=== PATIENT | female | born 1990 | race Caucasian/White ===

== ENCOUNTER 2023-03-19 21:56 | Inpatient (IN) ==
[2023-03-19 22:47] LABS: Appearance Urine Cloudy (Clear); Bacteria Urine Automated 3+ (Negative); Bilirubin Urine Negative (Negative); Blood Urine Negative (Negative); Color Urine Dark Yellow; Epithelial Cell Urine Auto >30 /lpf (0-5); Glucose Urine UA Negative (Negative); Ketones Urine Trace (Negative); Leukocyte Esterase Urine 2+ (Negative); Nitrite Urine Negative (Negative); Protein Urine Trace (Negative); RBC Urine Automated 0-4 /hpf (0-4); Specific Gravity Urine 1.031 (1.000-1.030); Urobilinogen Urine Negative (Negative); WBC Urine Automated >30 /hpf (0-5)
[2023-03-19 22:49] LABS: Pregnancy Test, Urine Negative (Negative)
[2023-03-19 22:52] LABS: Basophils # (auto) 0.05 K/uL (0-0.2); Basophils % (auto) 0.8 %; Eosinophils # (auto) 0.15 K/uL (0-0.50); Eosinophils % (auto) 2.4 %; Hematocrit (blood only) 36.8 % (37.0-47.0); Hemoglobin 12.4 g/dl (12.0-16.0); Immature Granulocytes # (auto) 0.01 K/uL (0.01-0.20); Immature Granulocytes % (auto) 0.2 %; Lymphocytes # (auto) 3.03 K/uL (1.2-3.4); Lymphocytes % (auto) 49.3 %; Mean Corpuscular Hemoglobin 28.3 pg (25.0-34.0); Mean Corpuscular Hgb Conc 33.7 g/dL (32.0-36.0); Monocytes # (auto) 0.39 K/uL (0.11-0.59); Monocytes % (auto) 6.3 %; Neutrophils # (auto) 2.52 K/uL (1.40-6.50); Platelet Count 288 K/uL (130-400); RDW Coefficient of Variation 13.8 % (11.5-14.5); RDW Standard Deviation 42.8 fL (36.4-46.3); Red Blood Count 4.38 M/uL (4.20-5.40); White Blood Count 6.15 K/ul (4.8-10.8)
[2023-03-19 23:01] LABS: Acetaminophen < 3 ug/ml (10-30); Salicylate < 3.0 mg/dl (3.0-30)
[2023-03-19 23:06] LABS: Albumin Globulin Ratio 1.3 (0.9-2); Albumin Level 4.3 gm/dl (3.4-5.0); BUN Creatinine Ratio 12.9 (10-20); Bilirubin,Total 0.4 mg/dl (0.2-1.0); Calcium 9.1 mg/dl (8.6-10.3); Creatinine Clr Calc Pharmacy 82.7 ml/min; Est GFR (African American) 132.9 ml/min; Est GFR (Non-African American) 114.6 ml/min; Globulin 3.3 gm/dl (2.5-4.0); Potassium 3.4 mmol/L (3.5-5.1); Total Protein 7.6 gm/dl (6.0-8.3)
[2023-03-19 23:09] LABS: Amphetamines+Metham, Urine Pos (Neg); Barbiturates, Urine Neg (Neg); Benzodiazepine, Urine Neg (Neg); Cocaine, Urine Neg (Neg); MDMA (Ecstacy), Urine Pos (Neg); Methadone, Urine Neg (Neg); Opiate, Urine Neg (Neg); Phencyclidine, Urine Neg (Neg)
[2023-03-20] MEDS ORDERED: DOXYCYCLINE HYCLATE 100 MG CAP PO STA (00:26)
--- NOTE | 2023-03-20 00:26 | Emergency Department Note ---
Impression & Plan Acute paranoia, Psychosis ED Provider Note INFORMANT: Patient ED PROVIDER(S): Zi Kwon DO CHIEF COMPLAINT: PLAN: Disposition: Psychiatric admission Outpatient prescription management: [none] Discussion with: systems program managertrust manager DECISION MAKING: This is a 33-year-old female who presents to the ED with a chief complaint of mental health issues. The patient was brought in by police after family contacted them. The patient does have a history of drug abuse. Reportedly uses methamphetamine. She also has a history of schizophrenia. The patient states that she has a bug in her nose for which the old friend who is now the girlfriend of her "baby daddy". She states that she is able to track her moves and follow her. She also reported there was some wires and that she recently was given. She states that these devices are able to make her skin crawl and other issues. The patient is in no distress. She does show me a rash on the left flank area. This has the appearance of an erythema migrans chronicum. Concern for possible tick bite although she denies having a tick on her. At a minimum there is some mild cellulitis there. She will be started on doxycycline for this. The patient otherwise does not require any medical admission for this. CBC showed no leukocytosis or anemia. Chemistry panel showed no concerning electrolyte abnormality. Urine test was negative. Salicylates and Tylenol were negative. Alcohol was negative. Urine appears contaminated but no obvious infection. She has no urinary symptoms. The patient has been 302. This was signed by me. A prescription for doxycycline has been provided for possible erythema chronicum micrograms versus a cellulitis in the left flank. The patient is awaiting placement. Will be signed out to Dr. Motta. Triage Nursing notes reviewed. Vital Signs: reviewed Prior /Outside records reviewed: [none] Differential diagnosis: Differential includes toxic ingestions, self-mutilation, suicidal ideation, suicide attempt, depression. Diagnostics, as interpreted by me: 12 lead ECG: [none] Cardiac Monitoring ordered: [none] Medical decision rules: [none] Imaging studies: [none] Procedures: none. Critical care: none. HPI: See MDM above. PAST MEDICAL HISTORY: See Below PAST SURGICAL HISTORY: See Below SOCIAL HISTORY: See Below HOME MEDICATIONS:See Below ALLERGIES: See Below VITALS: See Below PHYSICAL EXAMINATION: See MDM for positive findings otherwise unremarkable. CONSTITUTIONAL/VITAL SIGNS: Reviewed GENERAL:done as appropriate INTEGUMENTARY: done as appropriate HEAD: done as appropriate EYES: done as appropriate RESPIRATORY: done as appropriate CARDIOVASCULAR:done as appropriate GI/ABDOMEN:done as appropriate EXTREMITIES: done as appropriate NEUROLOGICAL: done as appropriate PSYCHIATRIC:done as appropriate MUSCULOSKELETAL:done as appropriate TRIAGE NURSING DOCUMENTATION REVIEWED. Past Med/Surg History Medical History Abscess of left upper extremity Cellulitis of arm, left Raynaud disease Traumatic hematoma of left forearm Traumatic hematoma of left forearm Surgical History No significant past surgical history Family History Other No significant family history Social History Smoking Status: Current every day smoker Tobacco Type: Cigarettes Preferred Language: Wolof marital status: Single current occupational status: unemployed Feels Safe at Home: No Gender Identity: Female Allergies Allergies Allergy/AdvReac Type Severity Reaction Status Date / Time No Known Allergies Allergy Verified 05/04/19 18:09 Home Meds Home Medications Medication Instructions Recorded Confirmed gabapentin 400 mg capsule 600 mg PO TID 04/27/19 03/19/23 buprenorphine HCl 8 mg sublingual 8 mg sublingual BID 05/01/19 03/19/23 tablet doxepin 100 mg capsule 100 mg PO BID 12/06/22 03/19/23 olanzapine 7.5 mg tablet 7.5 mg PO BID 03/19/23 03/19/23 Previous Rx's Medication Instructions Recorded doxycycline monohydrate 100 mg 100 mg PO BID #20 caps 03/20/23 capsule Results & Data (ED) Vital Signs Vital Signs - 24 hr 03/19/23 21:57 03/20/23 00:21 03/20/23 01:09 Temperature 36.5 C Temperature Source Oral Pulse Rate 75 Pulse Rate [Left Finger] 78 Respiratory Rate 16 20 20 Respiratory Effort / Characteristics Non-Labored Respiratory Depth Normal Blood Pressure 125/80 Blood Pressure [Left Arm] 92/55 L Blood Pressure Mean 95 Blood Pressure Mean [Left Arm] 67 Pulse Oximetry 97 98 Oxygen Delivery Method Room Air Room Air Sepsis Recent Fever Within 48 Hours No Sepsis New/Unexplained Change in Mental Status N/A Sepsis Action Taken by Nursing No Action Required Laboratory Data 03/19/23 22:30 03/19/23 22:30 Lab Results 03/19/23 03/19/23 03/19/23 Range/Units 22:12 22:12 22:12 WBC (4.8-10.8) K/ul RBC (4.20-5.40) M/uL Hgb (12.0-16.0) g/dl Hct (37.0-47.0) % MCV (80.0-100.0) fL MCH (25.0-34.0) pg MCHC (32.0-36.0) g/dL RDW Std Deviation (36.4-46.3) fL RDW Coeff of Kaden (11.5-14.5) % Plt Count (130-400) K/uL MPV (9.4-12.4) fL Immature Gran % (Auto) % Neut % (Auto) % Lymph % (Auto) % [place] % (Auto) % Eos % (Auto) % Baso % (Auto) % Neut # (Auto) (1.40-6.50) K/uL Lymph # (Auto) (1.2-3.4) K/uL [place] # (Auto) (0.11-0.59) K/uL Eos # (Auto) (0-0.50) K/uL Baso # (Auto) (0-0.2) K/uL Immature Gran # (Auto) (0.01-0.20) K/uL Sodium (136-145) mmol/L Potassium (3.5-5.1) mmol/L Chloride (98-107) mmol/L Carbon Dioxide (21-32) mmol/L Anion Gap (3-11) BUN (6-23) mg/dl Creatinine (0.6-1.2) mg/dl Est Cr Clr Drug Dosing ml/min Est GFR ( Amer) ml/min Est GFR (Non-Af Amer) ml/min BUN/Creatinine Ratio (10-20) Glucose (70-99(Fasting)) mg/dl Calcium (8.6-10.3) mg/dl Total Bilirubin (0.2-1.0) mg/dl AST (13-39) U/L ALT (7-52) U/L Alkaline Phosphatase (34-104) U/L Total Protein (6.0-8.3) gm/dl Albumin (3.4-5.0) gm/dl Globulin (2.5-4.0) gm/dl Albumin/Globulin Ratio (0.9-2) TSH (0.300-4.500) uIu/ml Urine Color Dark Yellow Urine Appearance Cloudy A (Clear) Urine pH 6.0 (4.5-7.5) Ur Specific [place] 1.031 H (1.000-1.030) Urine Protein Trace H (Negative) Urine Glucose (UA) Negative (Negative) Urine Ketones Trace H (Negative) Urine Blood Negative (Negative) Urine Nitrite Negative (Negative) Urine Bilirubin Negative (Negative) Urine Urobilinogen Negative (Negative) Ur Leukocyte Esterase 2+ H (Negative) Urine WBC (Auto) >30 H (0-5) /hpf Urine RBC (Auto) 0-4 (0-4) /hpf U Hyaline Cast (Auto) 1-5 (0-5) /lpf U Epithel Cells (Auto) >30 H (0-5) /lpf Urine Bacteria (Auto) 3+ H (Negative) Urine Test Negative (Negative) Salicylates (3.0-30) mg/dl Urine Opiates Screen Neg (Neg) Ur Methadone, Qual Neg (Neg) Acetaminophen (10-30) ug/ml Urine Barbiturates Neg (Neg) Ur Phencyclidine (PCP) Neg (Neg) U Amphetamin/Meth Scrn Pos H (Neg) MDMA (Ecstasy) Screen Pos H (Neg) U Benzodiazepines Scrn Neg (Neg) Ur Cocaine Metabolite Neg (Neg) U Marijuana (THC) Screen Pos H (Neg) Ethyl Alcohol mg/dL (<10.0) mg/dl SARS-CoV-2, RNA, NAAT (NEGATIVE) 03/19/23 03/19/23 03/19/23 Range/Units 22:30 22:30 22:30 WBC 6.15 (4.8-10.8) K/ul RBC 4.38 (4.20-5.40) M/uL Hgb 12.4 (12.0-16.0) g/dl Hct 36.8 L (37.0-47.0) % MCV 84.0 (80.0-100.0) fL MCH 28.3 (25.0-34.0) pg MCHC 33.7 (32.0-36.0) g/dL RDW Std Deviation 42.8 (36.4-46.3) fL RDW Coeff of Kaden 13.8 (11.5-14.5) % Plt Count 288 (130-400) K/uL MPV 9.0 L (9.4-12.4) fL Immature Gran % (Auto) 0.2 % Neut % (Auto) 41.0 % Lymph % (Auto) 49.3 % [place] % (Auto) 6.3 % Eos % (Auto) 2.4 % Baso % (Auto) 0.8 % Neut # (Auto) 2.52 (1.40-6.50) K/uL Lymph # (Auto) 3.03 (1.2-3.4) K/uL [place] # (Auto) 0.39 (0.11-0.59) K/uL Eos # (Auto) 0.15 (0-0.50) K/uL Baso # (Auto) 0.05 (0-0.2) K/uL Immature Gran # (Auto) 0.01 (0.01-0.20) K/uL Sodium 139 (136-145) mmol/L Potassium 3.4 L (3.5-5.1) mmol/L Chloride 108 H (98-107) mmol/L Carbon Dioxide 24 (21-32) mmol/L Anion Gap 7 (3-11) BUN 9 (6-23) mg/dl Creatinine 0.70 (0.6-1.2) mg/dl Est Cr Clr Drug Dosing 82.7 ml/min Est GFR ( Amer) 132.9 ml/min Est GFR (Non-Af Amer) 114.6 ml/min BUN/Creatinine Ratio 12.9 (10-20) Glucose 97 (70-99(Fasting)) mg/dl Calcium 9.1 (8.6-10.3) mg/dl Total Bilirubin 0.4 (0.2-1.0) mg/dl AST 15 (13-39) U/L ALT 8 (7-52) U/L Alkaline Phosphatase 68 (34-104) U/L Total Protein 7.6 (6.0-8.3) gm/dl Albumin 4.3 (3.4-5.0) gm/dl Globulin 3.3 (2.5-4.0) gm/dl Albumin/Globulin Ratio 1.3 (0.9-2) TSH 0.717 (0.300-4.500) uIu/ml Urine Color Urine Appearance (Clear) Urine pH (4.5-7.5) Ur Specific [place] (1.000-1.030) Urine Protein (Negative) Urine Glucose (UA) (Negative) Urine Ketones (Negative) Urine Blood (Negative) Urine Nitrite (Negative) Urine Bilirubin (Negative) Urine Urobilinogen (Negative) Ur Leukocyte Esterase (Negative) Urine WBC (Auto) (0-5) /hpf Urine RBC (Auto) (0-4) /hpf U Hyaline Cast (Auto) (0-5) /lpf U Epithel Cells (Auto) (0-5) /lpf Urine Bacteria (Auto) (Negative) Urine Test (Negative) Salicylates (3.0-30) mg/dl Urine Opiates Screen (Neg) Ur Methadone, Qual (Neg) Acetaminophen (10-30) ug/ml Urine Barbiturates (Neg) Ur Phencyclidine (PCP) (Neg) U Amphetamin/Meth Scrn (Neg) MDMA (Ecstasy) Screen (Neg) U Benzodiazepines Scrn (Neg) Ur Cocaine Metabolite (Neg) U Marijuana (THC) Screen (Neg) Ethyl Alcohol mg/dL (<10.0) mg/dl SARS-CoV-2, RNA, NAAT (NEGATIVE) 03/19/23 03/19/23 03/19/23 Range/Units 22:30 22:30 22:30 WBC (4.8-10.8) K/ul RBC (4.20-5.40) M/uL Hgb (12.0-16.0) g/dl Hct (37.0-47.0) % MCV (80.0-100.0) fL MCH (25.0-34.0) pg MCHC (32.0-36.0) g/dL RDW Std Deviation (36.4-46.3) fL RDW Coeff of Kaden (11.5-14.5) % Plt Count (130-400) K/uL MPV (9.4-12.4) fL Immature Gran % (Auto) % Neut % (Auto) % Lymph % (Auto) % [place] % (Auto) % Eos % (Auto) % Baso % (Auto) % Neut # (Auto) (1.40-6.50) K/uL Lymph # (Auto) (1.2-3.4) K/uL [place] # (Auto) (0.11-0.59) K/uL Eos # (Auto) (0-0.50) K/uL Baso # (Auto) (0-0.2) K/uL Immature Gran # (Auto) (0.01-0.20) K/uL Sodium (136-145) mmol/L Potassium (3.5-5.1) mmol/L Chloride (98-107) mmol/L Carbon Dioxide (21-32) mmol/L Anion Gap (3-11) BUN (6-23) mg/dl Creatinine (0.6-1.2) mg/dl Est Cr Clr Drug Dosing ml/min Est GFR ( Amer) ml/min Est GFR (Non-Af Amer) ml/min BUN/Creatinine Ratio (10-20) Glucose (70-99(Fasting)) mg/dl Calcium (8.6-10.3) mg/dl Total Bilirubin (0.2-1.0) mg/dl AST (13-39) U/L ALT (7-52) U/L Alkaline Phosphatase (34-104) U/L Total Protein (6.0-8.3) gm/dl Albumin (3.4-5.0) gm/dl Globulin (2.5-4.0) gm/dl Albumin/Globulin Ratio (0.9-2) TSH (0.300-4.500) uIu/ml Urine Color Urine Appearance (Clear) Urine pH (4.5-7.5) Ur Specific [place] (1.000-1.030) Urine Protein (Negative) Urine Glucose (UA) (Negative) Urine Ketones (Negative) Urine Blood (Negative) Urine Nitrite (Negative) Urine Bilirubin (Negative) Urine Urobilinogen (Negative) Ur Leukocyte Esterase (Negative) Urine WBC (Auto) (0-5) /hpf Urine RBC (Auto) (0-4) /hpf U Hyaline Cast (Auto) (0-5) /lpf U Epithel Cells (Auto) (0-5) /lpf Urine Bacteria (Auto) (Negative) Urine Test (Negative) Salicylates < 3.0 L (3.0-30) mg/dl Urine Opiates Screen (Neg) Ur Methadone, Qual (Neg) Acetaminophen < 3 L (10-30) ug/ml Urine Barbiturates (Neg) Ur Phencyclidine (PCP) (Neg) U Amphetamin/Meth Scrn (Neg) MDMA (Ecstasy) Screen (Neg) U Benzodiazepines Scrn (Neg) Ur Cocaine Metabolite (Neg) U Marijuana (THC) Screen (Neg) Ethyl Alcohol mg/dL < 10.0 (<10.0) mg/dl SARS-CoV-2, RNA, NAAT NEGATIVE (NEGATIVE) Administered Medications Discontinued Medications Doxycycline Hyclate (Doxycycline Hyclate 100 Mg Cap) 100 mg PO NOW STA Stop: 03/20/23 00:27 Last Admin: 03/20/23 01:04 Dose: 100 mg Documented By: VERNON Discharge Plan Visit Data Chief Complaint: Mental Health Evaluation ED Provider: Zi Kwon Discharge Problem: Acute paranoia, Psychosis Patient Disposition: Transfer Behavioral Health Fac Discharge Instructions Activity Restrictions/Additional Instructions: Take doxycycline as prescribed. Forms Stand Alone Forms: [facility], Suicide Prevention Resources Prescriptions Prescriptions: New doxycycline monohydrate 100 mg capsule 100 mg PO BID Qty: 20 0RF No Action gabapentin 400 mg Capsule 600 mg PO TID buprenorphine HCl 8 mg tablet, sublingual 8 mg sublingual BID doxepin 100 mg capsule 100 mg PO BID olanzapine 7.5 mg tablet 7.5 mg PO BID Referrals Referrals: PCP,NO [Primary Care Provider] -
[2023-03-20] MEDS ORDERED: buprenorphine HCL 8 MG SUBL SL STA (01:25)
[2023-03-20] MEDS ORDERED: DOXEPIN HCL 50 MG CAPSULE PO STA (01:25)
[2023-03-20] MEDS ORDERED: GABAPENTIN 600 MG TAB PO STA ×2 (01:26→18:40)
[2023-03-20] MEDS ORDERED: OLANZapine 5 MG TABLET PO STA (01:26)
--- NOTE | 2023-03-20 06:05 | Emergency Department Note ---
ED Visit Note ED psychiatric note Case was turned over to me by Dr. Kwon pending disposition this patient is under a 302 for psychosis and schizophrenia This patient was excepted to [facility] for psychiatric treatment Disposition is at 6 AM on March 20 for psychosis and schizophrenia Admitted to [facility] .
[2023-03-20] MEDS ORDERED: MAGNESIUM HYDROXIDE SUSP 30 ML UDC PO PRN (06:13)
[2023-03-20] MEDS ORDERED: hydrOXYzine HCl 25 MG TAB PO PRN ×2 (06:13)
[2023-03-20] MEDS ORDERED: ALUMINUM/MAGNESIUM SUSP 30 ML UDC PO PRN (06:13)
[2023-03-20] MEDS ORDERED: SODIUM CHLORIDE 0.65% NA SOLN 45 ML (OCEAN) PRN (06:13)
[2023-03-20] MEDS ORDERED: BISMUTH SUBSALICYLATE LIQD 236 ML PO PRN (06:13)
[2023-03-20] MEDS ORDERED: ACETAMINOPHEN 325 MG TAB PO PRN (06:13)
[2023-03-20] MEDS ORDERED: haloperidoL 5 MG TAB PO PRN (06:15)
[2023-03-20] MEDS ORDERED: LORazepam 1 MG TAB PO PRN (06:21)
[2023-03-20] MEDS ORDERED: OLANZAPINE 2.5 MG TAB PO SCH (09:00)
[2023-03-20] MEDS ORDERED: buprenorphine HCL 8 MG SUBL SL SCH ×2 (09:00→21:00)
[2023-03-20] MEDS ORDERED: GABAPENTIN 400 MG CAP PO SCH (09:00)
[2023-03-20] MEDS ORDERED: DOXEPIN HCL 50 MG CAPSULE PO SCH (09:00)
[2023-03-20] MEDS ORDERED: GABAPENTIN 600 MG TAB PO SCH (09:00)
[2023-03-20] MEDS ORDERED: NICOTINE POLACRILEX 2 MG GUM MT PRN (10:40)
[2023-03-20] MEDS ORDERED: BUPRENORPHINE/NALOXONE 8/2 MG TAB SL SCH (11:00)
[2023-03-20] MEDS: NICOTINE 21 MG/24 HR TDSY TD SCH (11:05)
[2023-03-20] MEDS: buprenorphine HCL 8 MG SUBL SL SCH ×2 (12:24→21:54)
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
[2023-03-20] MEDS: DOXYCYCLINE HYCLATE 100 MG CAP PO SCH ×2 (14:45→21:59)
[2023-03-20] MEDS: GABAPENTIN 600 MG TAB PO SCH (21:54)
[2023-03-20] MEDS: OLANZAPINE 2.5 MG TAB PO SCH (21:55)
[2023-03-21] MEDS: buprenorphine HCL 8 MG SUBL SL SCH ×2 (09:39→20:49)
[2023-03-21] MEDS: GABAPENTIN 600 MG TAB PO SCH ×3 (09:40→20:50)
[2023-03-21] MEDS: DOXYCYCLINE HYCLATE 100 MG CAP PO SCH ×2 (09:40→20:49)
[2023-03-21] MEDS: NICOTINE 21 MG/24 HR TDSY TD SCH (09:40)
[2023-03-21] MEDS: OLANZAPINE 2.5 MG TAB PO SCH ×2 (09:40→20:50)
[2023-03-21] MEDS ORDERED: OLANZapine 5 MG TABLET PO PRN (13:18)
--- NOTE | 2023-03-21 13:32 | Psychiatric Progress Note ---
Date of Service March 21, 2023 Impression / Recommendations Impression 33 yo female with a hx of unspecified psychosis vs. mood do likely characterized as schizoaffective disorder by outside hospital but in the setting of significant substance abuse hx. 03/21/2023: encouraging support system involvement, patient is continuing with period of observation pending aftercare/housing. presentation/clearing consistent with substance induced (meth). UC grew gram negative rods. Doxy should cover, awaiting sensitivities. (1) Psychosis: Plan 03/21/23: still unable to confirm her reported dose of doxepin. She did sleep well when given 100 mg by ED, will offer 50 mg tonight pending records. Tolerating Neurontin. She continues to decline titration of Zyprexa. 03/20/23: The patient was admitted to the [facility] ([facility]) on q15 min checks (behavioral with suicide precautions) for safety. The patient will participate in group, recreational, and milieu therapies and will be offered additional individual and family sessions as clinically appropriate. Patient appears to be clearing somewhat with sleep and suspect meth induced, unclear if may be injecting under skin, no known tick exposure but started course of doxy in ED given appearance for prophylaxis. She is declining additional labs, will attempt to obtain fasting labs from outside facility. I will not order Neurontin as unclear if actually started prior to admission and trying to confirm indication/prescriber. Dose of Subutex confirmed with PDMP. Continue Zyprexa current dose, she is refusing increase to 10 mg BID at this time. Avoid antidepressants given potentially manic presentation due to presumed meth use. Was not taking doxepin consistently prior to admission based on report and fill dates so will not taper. Suicide Risk Level Suicide Risk Level: Moderate (q15 min suicide checks) Risk Factors Assessment Male: No : Yes Do You Have Access To A Gun?: No Mental Health Diagnoses: Yes Substance Use Disorders: Yes Previous Attempt: No Previous Psychiatric Hospitalization: Yes Protective Factors Assessment Employed: No Stable Relationships: No Interval History Identifying Information MADAI PHILLIP is a 33-year-old F who currently lives in [place], has a history of psychosis and substance abuse, and was admitted on 03/20/23 05:22 on a 302 involuntary commitment for paranoid delusions and disorganized behavior. Chief Complaint "I want my doxepin" "My sister is lying as she wants her friend to move in instead of me." Review of Systems Sleep Information Total Hours of Sleep: 10.5 Sleep Comments: New admission in morning Meal Information Percent Meal Consumed - Breakfast: 100 Percent Meal Consumed - Lunch: 85 Percent Meal Consumed - Dinner: 100 Subjective Subjective Patient was seen & assessed and interval progress reviewed with treatment team. Patient has not been responding to internal stimuli and is eating well. Staff were able to locate the [facility] clinic she attended but no records forwarded as not clear active patient. LM for petitioner of 302 (sister) as patient refusing ROIs and currently no grounds to extend commitment as eating here, communicating in a reality based manner, attending to ADLs and med compliance. In the interim, although patient is still refusing ROIs she did call her mother re: transportation planning, mother expressed concern to nursing about her ability to return home given her behavior. Physical Exam Psychiatric Orientation: alert Apperance: + disheveled Eye Contact: + fair eye contact Motor Behavior: no abnormal motor movements Speech: normal rate/rhythm/volume of speech Affect: + constricted affect Mood: + irritable mood Thought Process: + concrete thought process Thought Content: not paranoid Suicidal Thoughts: denies suicidal thoughts Homicidal Thoughts: denies homicidal thoughts Hallucinations: no auditory hallucinations and no visual hallucinations Cognition: attention grossly intact and language grossly intact Insight: + poor insight Judgment: + poor judgement Vital Signs (Past 24 Hours) Last Vital Signs Temp 37.2 C 03/21/23 06:44 Pulse 68 03/21/23 06:45 Resp 16 03/21/23 06:44 BP 108/65 03/21/23 06:45 Pulse Ox 100 03/20/23 06:22 O2 Del Method Room Air 03/20/23 06:22 Results & Data ([facility]) Current Inpatient Medications Current Inpatient Medications: Current Inpatient Medications Acetaminophen (Acetaminophen 325 Mg Tab) 650 mg PO Q4H PRN PRN Reason: Headache or Minor Fever Stop: 04/19/23 06:12 Al Hydrox/Mg Hydrox/Simethicone (Aluminum/Magnesium Susp 30 Ml Udc) 30 ml PO Q4H PRN PRN Reason: GI Upset Stop: 04/19/23 06:12 Bismuth Subsalicylate (Bismuth Subsalicylate Liqd 236 Ml) 15 ml PO PRN PRN PRN Reason: Loose Stool Stop: 04/19/23 06:12 Buprenorphine HCl (Buprenorphine Hcl 8 Mg Subl) 8 mg SL BID [facility] Stop: 04/19/23 12:14 Last Admin: 03/21/23 09:39 Dose: 8 mg Doxepin HCl (Doxepin Hcl 50 Mg Capsule) 50 mg PO HS [facility] Stop: 04/20/23 21:59 Doxycycline Hyclate (Doxycycline Hyclate 100 Mg Cap) 100 mg PO BID [facility] Stop: 03/30/23 13:59 Last Admin: 03/21/23 09:40 Dose: 100 mg Gabapentin (Gabapentin 600 Mg Tab) 600 mg PO TID [facility] Stop: 04/19/23 20:59 Last Admin: 03/21/23 09:40 Dose: 600 mg Hydroxyzine HCl (Hydroxyzine Hcl 25 Mg Tab) 50 mg PO HSZ PRN PRN Reason: Insomnia Stop: 04/19/23 06:12 Hydroxyzine HCl (Hydroxyzine Hcl 25 Mg Tab) 25 mg PO Q4H PRN PRN Reason: Anxiety Stop: 04/19/23 06:12 Magnesium Hydroxide (Magnesium Hydroxide Susp 30 Ml Udc) 30 ml PO DAILY PRN PRN Reason: Constipation Stop: 04/19/23 06:12 Miscellaneous (Remove Nicoderm Patch) 1 each N/A DAILY@0859 [facility] Stop: 04/20/23 08:58 Last Admin: 03/21/23 09:39 Dose: 1 each Nicotine (Nicotine 21 Mg/24 Hr Tdsy) 21 mg TD QAM [facility] Stop: 04/19/23 10:59 Last Admin: 03/21/23 09:40 Dose: 21 mg Nicotine Polacrilex (Nicotine Polacrilex 2 Mg Gum) 1 piece MT PRN PRN PRN Reason: nicotine Stop: 04/19/23 10:39 Olanzapine (Olanzapine 2.5 Mg Tab) 7.5 mg PO BID [facility] Stop: 04/19/23 20:59 Last Admin: 03/21/23 09:40 Dose: 7.5 mg Olanzapine (Olanzapine 5 Mg Tablet) 5 mg PO Q6 PRN PRN Reason: Anxiety/Agitation Stop: 04/20/23 17:59 Sodium Chloride (Sodium Chloride 0.65% Na Soln 45 Ml ([place])) 1 - 2 sprays NA PRN PRN PRN Reason: Nasal Dryness/Congestion Stop: 04/19/23 06:12
[2023-03-21] MEDS ORDERED: DOXEPIN HCL 50 MG CAPSULE PO SCH (22:00)
[2023-03-22] MEDS: OLANZAPINE 2.5 MG TAB PO SCH (08:42)
[2023-03-22] MEDS: NICOTINE 21 MG/24 HR TDSY TD SCH (08:42)
[2023-03-22] MEDS: GABAPENTIN 600 MG TAB PO SCH (08:42)
[2023-03-22] MEDS: DOXYCYCLINE HYCLATE 100 MG CAP PO SCH (08:42)
[2023-03-22] MEDS: buprenorphine HCL 8 MG SUBL SL SCH (08:45)
--- NOTE | 2023-03-22 10:38 | Discharge Summary ---
Date of Service March 22, 2023 History of Present Illness Patient was hospitalized 2 months ago at [facility] for similar presentation (though records not immediately available), does not appear she agreed to/kept follow up appointment yet maintains she is taking medications as prescribed. She was responding to internal stimuli in the ED and talking about seeing bugs on her skin. Family has reported a declined in PO intake due to belief there are bugs in her food. The patient reportedly through spaghetti at the wall. She did sleep upon arrival to the unit, ate breakfast and showered without incident. She states her family is overreacting and that she is fine. She is not a reliable historian as denies use of any substances despite testing positive for amphetamine/meth, MDMA (could be past TCA dose), and marijuana. Initially voiced understanding of 302 process then demanded transfer when Subut ex wasn't immediately available. Physical Exam Psychiatric See admission H&P and DOD assessment. Vital Signs (Past 24 Hours) Last Vital Signs Temp 37.5 C 03/22/23 10:22 Pulse 88 03/22/23 10:22 Resp 16 03/22/23 10:22 BP 96/58 L 03/22/23 10:22 Pulse Ox 100 03/22/23 10:22 O2 Del Method Room Air 03/20/23 06:22 Principal Diagnosis substance induced psychotic disorder Psychiatric Data See daily stay summary. In short, safety was maintained and the patient was irritable at times early in stay but gradually improved. She made paranoid comments about her family within first 24-36 hours of stay but did not appear to be responding to internal stimuli but ate and slept readily. Medication changes included resumption of previous dose of Zyprexa and lower dose doxepin. She tolerated this well. She declined a family session. She was agreeable to aftercare and social work had provided info for walk in clinic [facility] but now also agreeable to [facility] referral. As the patient would not sign DEVAN, I LM for sister (302 petitioner) in an attempt to confirm housing/attempt to engage family in care with no return call at the time of this report. The patient did have contact with her mother yesterday re: return home today. Staff were not able to release info re: patient continue/substance abuse without DEVAN but mother did indicate concerns about patient returning home given/frustrations with the 302 process. The patient refuses assistance with alternative housing arrangements and plans to return home. The patient continues to minimize substance abuse and role in repeated hospitalizations. She is refusing rehab. She is refusing additional medication. Myriam is no longer meeting criteria for involuntary commitment and cannot be committed to a rehab program under [facility] health law. She also does not meet criteria for forced medication. She is aware that her psychosis is likely to recur with ongoing substance use (presumed meth), particularly if not taking Zyprexa consistently. She refused additional labs for metabolic monitoring and records from [facility] hospitalization were not available prior to discharge. She is aware that antipsychotic medications carry longer term risks and require monitoring. She is much more organized, attending to ADLs, cooperative with aftercare arrangements, and willing to continue PO meds as ordered. Care that can be provided under [facility] statute has been exhausted. Day of Discharge Assessment Today the patient voices readiness for discharge. They note improvement in mood and deny thoughts to harm self or others. Thoughts are organized and they are improved from admission. There is no evidence of psychosis. They agree to take mediations as prescribed and keep follow-up appointments. They are stable for discharge to outpatient level of care. Transition of Care Transition Of Care Record: was reviewed with the patient Advance Directives Advance Directives Information Provided: Yes Advance Directives: No Mental Health Advance Directive: No Advance Directives on File: No Living Will: No Power of Hand Gluer And Slicer: No Advance Directives Reason:: Declines as Mental Health Visit. Suicide Risk Level Suicide Risk Level Comments: Suicide risk at discharge is deemed low as the patient is no longer requiring 24-hr monitoring, has aftercare, and is free of suicidal ideation at discharge. Risk Factors Assessment Male: No : Yes Do You Have Access To A Gun?: No Mental Health Diagnoses: Yes Substance Use Disorders: Yes Previous Attempt: No Previous Psychiatric Hospitalization: Yes Protective Factors Assessment Employed: No Stable Relationships: No Tobacco Cessation at Discharge Tobacco Cessation Medication Prescribed at Discharge: Offered & Pt Refused Total Time Total Time Spent: Greater Than 30 Minutes Total Time Includes: Examination of the patient, Discharge Planning and Medication Reconciliation Discharge Data Lab Results 03/19/23 03/19/23 03/19/23 22:12 22:12 22:12 WBC RBC Hgb Hct MCV MCH MCHC RDW Std Deviation RDW Coeff of Kaden Plt Count MPV Immature Gran % (Auto) Neut % (Auto) Lymph % (Auto) [place] % (Auto) Eos % (Auto) Baso % (Auto) Neut # (Auto) Lymph # (Auto) [place] # (Auto) Eos # (Auto) Baso # (Auto) Immature Gran # (Auto) Sodium Potassium Chloride Carbon Dioxide Anion Gap BUN Creatinine Est Cr Clr Drug Dosing Est GFR ( Amer) Est GFR (Non-Af Amer) BUN/Creatinine Ratio Glucose Calcium Total Bilirubin AST ALT Alkaline Phosphatase Total Protein Albumin Globulin Albumin/Globulin Ratio TSH Urine Color Dark Yellow Urine Appearance Cloudy A Urine pH 6.0 Ur Specific [place] 1.031 H Urine Protein Trace H Urine Glucose (UA) Negative Urine Ketones Trace H Urine Blood Negative Urine Nitrite Negative Urine Bilirubin Negative Urine Urobilinogen Negative Ur Leukocyte Esterase 2+ H Urine WBC (Auto) >30 H Urine RBC (Auto) 0-4 U Hyaline Cast (Auto) 1-5 U Epithel Cells (Auto) >30 H Urine Bacteria (Auto) 3+ H Urine Test Negative Salicylates Urine Opiates Screen Neg Ur Methadone, Qual Neg Acetaminophen Urine Barbiturates Neg Ur Phencyclidine (PCP) Neg U Amphetamin/Meth Scrn Pos H MDMA (Ecstasy) Screen Pos H U Benzodiazepines Scrn Neg Ur Cocaine Metabolite Neg U Marijuana (THC) Screen Pos H Ethyl Alcohol mg/dL SARS-CoV-2, RNA, NAAT 03/19/23 03/19/23 03/19/23 22:30 22:30 22:30 WBC 6.15 RBC 4.38 Hgb 12.4 Hct 36.8 L MCV 84.0 MCH 28.3 MCHC 33.7 RDW Std Deviation 42.8 RDW Coeff of Kaden 13.8 Plt Count 288 MPV 9.0 L Immature Gran % (Auto) 0.2 Neut % (Auto) 41.0 Lymph % (Auto) 49.3 [place] % (Auto) 6.3 Eos % (Auto) 2.4 Baso % (Auto) 0.8 Neut # (Auto) 2.52 Lymph # (Auto) 3.03 [place] # (Auto) 0.39 Eos # (Auto) 0.15 Baso # (Auto) 0.05 Immature Gran # (Auto) 0.01 Sodium 139 Potassium 3.4 L Chloride 108 H Carbon Dioxide 24 Anion Gap 7 BUN 9 Creatinine 0.70 Est Cr Clr Drug Dosing 82.7 Est GFR ( Amer) 132.9 Est GFR (Non-Af Amer) 114.6 BUN/Creatinine Ratio 12.9 Glucose 97 Calcium 9.1 Total Bilirubin 0.4 AST 15 ALT 8 Alkaline Phosphatase 68 Total Protein 7.6 Albumin 4.3 Globulin 3.3 Albumin/Globulin Ratio 1.3 TSH 0.717 Urine Color Urine Appearance Urine pH Ur Specific [place] Urine Protein Urine Glucose (UA) Urine Ketones Urine Blood Urine Nitrite Urine Bilirubin Urine Urobilinogen Ur Leukocyte Esterase Urine WBC (Auto) Urine RBC (Auto) U Hyaline Cast (Auto) U Epithel Cells (Auto) Urine Bacteria (Auto) Urine Test Salicylates Urine Opiates Screen Ur Methadone, Qual Acetaminophen Urine Barbiturates Ur Phencyclidine (PCP) U Amphetamin/Meth Scrn MDMA (Ecstasy) Screen U Benzodiazepines Scrn Ur Cocaine Metabolite U Marijuana (THC) Screen Ethyl Alcohol mg/dL SARS-CoV-2, RNA, NAAT 03/19/23 03/19/23 03/19/23 22:30 22:30 22:30 WBC RBC Hgb Hct MCV MCH MCHC RDW Std Deviation RDW Coeff of Kaden Plt Count MPV Immature Gran % (Auto) Neut % (Auto) Lymph % (Auto) [place] % (Auto) Eos % (Auto) Baso % (Auto) Neut # (Auto) Lymph # (Auto) [place] # (Auto) Eos # (Auto) Baso # (Auto) Immature Gran # (Auto) Sodium Potassium Chloride Carbon Dioxide Anion Gap BUN Creatinine Est Cr Clr Drug Dosing Est GFR ( Amer) Est GFR (Non-Af Amer) BUN/Creatinine Ratio Glucose Calcium Total Bilirubin AST ALT Alkaline Phosphatase Total Protein Albumin Globulin Albumin/Globulin Ratio TSH Urine Color Urine Appearance Urine pH Ur Specific [place] Urine Protein Urine Glucose (UA) Urine Ketones Urine Blood Urine Nitrite Urine Bilirubin Urine Urobilinogen Ur Leukocyte Esterase Urine WBC (Auto) Urine RBC (Auto) U Hyaline Cast (Auto) U Epithel Cells (Auto) Urine Bacteria (Auto) Urine Test Salicylates < 3.0 L Urine Opiates Screen Ur Methadone, Qual Acetaminophen < 3 L Urine Barbiturates Ur Phencyclidine (PCP) U Amphetamin/Meth Scrn MDMA (Ecstasy) Screen U Benzodiazepines Scrn Ur Cocaine Metabolite U Marijuana (THC) Screen Ethyl Alcohol mg/dL < 10.0 SARS-CoV-2, RNA, NAAT NEGATIVE Hospital Course (1) Psychosis: Plan 03/21/23: still unable to confirm her reported dose of doxepin. She did sleep well when given 100 mg by ED, will offer 50 mg tonight pending records. Tolerating Neurontin. She continues to decline titration of Zyprexa. 03/20/23: The patient was admitted to the [facility] on q15 min checks (behavioral with suicide precautions) for safety. The patient will participate in group, recreational, and milieu therapies and will be offered additional individual and family sessions as clinically appropriate. Patient appears to be clearing somewhat with sleep and suspect meth induced, unclear if may be injecting under skin, no known tick exposure but started course of doxy in ED given appearance for prophylaxis. She is declining additional labs, will attempt to obtain fasting labs from outside facility. I will not order Neurontin as unclear if actually started prior to admission and trying to confirm indication/prescriber. Dose of Subutex confirmed with PDMP. Continue Zyprexa current dose, she is refusing increase to 10 mg BID at this time. Avoid antidepressants given potentially manic presentation due to presumed meth use. Was not taking doxepin consistently prior to admission based on report and fill dates so will not taper. Mental Health & Subst Abuse Tx Psychiatrist Name of Psychiatrist: [facility] Psychiatrist's Time of Appointment with Psychiatrist: To establish services, please visit walk- in clinic M-F (opens at 7:45 AM). Psychiatric Appointment Comment: [place] [id number] Post Discharge Appointments Primary Care Physician Name Of Family Doctor/PCP: [facility] Date of Future Appointment with PCP: 04/22/23 Time of Appointment with PCP: 12:30 PM Provider Appointment Comment: [address], [place] [address] Primary Care Release of Information: Obtained, Reviewed and Signed Home Health Services Home Health Services:: None Smoking Cessation Counseling Tobacco Cessation Medication Prescribed at Discharge: Offered & Pt Refused Contact Information Discharge Discharge Address: [address] [place] [address] [address] [place] [id number] Discharge Plan Discharge Items Patient Disposition: Home - Self-Care Reason For Visit: PSYCHOTIC DISORDER Discharge Diagnosis: same Activity: Resume your previous activity Non-emergency contact: Primary Care Provider, Psychiatrist and Therapist Call non-emergency contact if: you have any medication questions and your symptoms worsen Follow-up/Referrals: PCP,NO [Primary Care Provider] - Diet: Regular Addtl Attending Provider Instructions: SPECIAL CARE INSTRUCTIONS: 1. Follow through with your scheduled aftercare appointments. If unable to keep an appointment, please call to reschedule. 2. Take your medication only as prescribed. Medication should not be changed or stopped without the approval of your doctor. In the event of worsening symptoms or concerns about side effects, contact your doctor immediately. 3. Utilize new healthy coping skills, anger management skills, and stress management skills learned during your hospitalization. Journal feelings and process them with a support person. Identify stressors or situations that may result in relapse, deterioration or inappropriate behaviors and develop a plan to deal with those issues. 4. If your coping skills are ineffective and you are in crisis, contact your outpatient providers for direction. If unable to reach your providers, please call the [facility] CRISIS LINE AT , go to the [facility] walk-in center at [address], [address], [place], or go to the closest Emergency Room. 5. Avoid alcohol and un-prescribed drugs. 6. You have been provided with the Mental Health Advance Directives Pamphlet for your review. 7. Your condition is stable for discharge to outpatient level of care, but recovery is an ongoing process. Ifthoughts to harm yourself or others return, follow the safety plan developed during your stay. Planning for a safe return home includes securing weapons. Our treatment team recommends weaponsbe removed from the home until your outpatient provider reassesses your progress. In rare cases where the items themselvescannot be removed, guns and ammunitionshould be secured separatelyand keys stored by a reliable personoutside of the home. If you were admitted on an involuntary commitment, the police or other legal authorities may be involved in this process. AFTERCARE APPOINTMENTS: * Please call your insurance company prior to your scheduled appointment to confirm your aftercare providers are covered. Take your insurance information to your appointments. WHO TO CALL AND WHEN: Medical Emergencies: For questions or emergencies related to your hospital stay, please contact the Inpatient Behavioral Health Unit at [phone]. A stringer machine tender is on-call 25/04 for the Behavioral Health Unit for emergencies At any time you feel your situation is an emergency, you may also call 911 immediately. Pending Studies at Discharge: No Stand-Alone Forms: My [facility], Smoking Cessation Medications and DC Order Prescriptions: New olanzapine 7.5 mg tablet 7.5 mg PO BID Qty: 60 0RF doxepin 50 mg Capsule 50 mg PO HS Qty: 30 0RF doxycycline hyclate 100 mg Capsule 100 mg PO BID Qty: 14 0RF Rx Instructions: until gone Continued buprenorphine HCl 8 mg tablet, sublingual 8 mg sublingual BID gabapentin 600 mg tablet 600 mg PO TID medroxyprogesterone 150 mg/mL suspension 150 mg IM .[id number] Discharge Orders: Discharge Order (Routine); Ordered 03/22/23 Ordered By: Lory York Admission Data Admit Date/Time: 03/20/23 05:22 Attending Provider: Lory York Admit Provider: Lory York Primary Care Provider: PCP,NO Other Interventions: Discharge Summary Assessment (RN) Last Done: 03/22/23 10:22 PSY Interdisciplinary Discharge Planning Last Done: 03/22/23 10:22 Coding Level of Care Code 85072 D/C day mgmt > 30 min Diagnoses Psychosis F29
[2023-03-27 11:57] LABS: Amphetamine Urine, Confirm 4869 ng/mL (<250); MDA negative; MDEA negative; MDMA (Ecstasy) Urine, Confirm negative; Marijuana Quant, GCMS Urine 124 ng/mL (<5); Methamphetamine, Ur Confirm 5833 ng/mL (<250)
== END 2023-03-22 12:46 | disposition home or self-care (01) | DRG 897 ==
LOC: ED 21:56 → 3S 03-20 05:22